=== PATIENT | male | born 1970 | race Caucasian/White ===

== ENCOUNTER 2023-12-05 08:26 | Day surgery (SDC) | payer BC ==
[2023-12-05] MEDS: Lactated Ringers 1,000 ML IV SCH (08:37)
[2023-12-05] MEDS ORDERED: fentaNYL 50 MCG/ML SDV ONE (08:45)
[2023-12-05] MEDS ORDERED: Propofol 200 MG/20 ML SDV ONE ×2 (08:45)
[2023-12-05] MEDS ORDERED: Ketamine 200 MG/20 ML MDV ONE (08:45)
== END 2023-12-05 10:15 | disposition home or self-care (01) ==
LOC: CC.SDS 08:26
PROVIDERS: ATTEND Family Medicine
DX: Z12.11 Encounter for screening for malignant neoplasm of colon (principal); D12.0 Benign neoplasm of cecum; D12.2 Benign neoplasm of ascending colon; D12.5 Benign neoplasm of sigmoid colon; N40.0 Benign prostatic hyperplasia without lower urinary tract symptoms; L30.9 Dermatitis, unspecified; Z79.899 Other long term (current) drug therapy
CPT/HCPCS: 00811; J2704; J3010; J3490; J7120